=== PATIENT | female | born 1985 | race Hispanic/Latino ===

== ENCOUNTER 2023-08-20 09:56 | Emergency (ER) | payer BC ==
[~2023-08-20] VITALS: Ht 154.9 cm; Wt 66.2 kg
[2023-08-20 10:18] LABS: BASOPHILS # (AUTO) 0.02 K/uL (0.00-0.20); BASOPHILS % (AUTO) 0.3 % (0.0-5.0); EOSINOPHILS # (AUTO) 0.02 K/uL (0.00-0.70); EOSINOPHILS % (AUTO) 0.3 % (0.0-8.0); HEMATOCRIT 41.8 % (36-48); IMMATURE GRANULOCYTE ABSOLUTE 0.01 K/uL (0-1); LYMPHOCYTES % (AUTO) 28.3 % (21.0-51.0); MEAN CORPUSCULAR HEMOGLOBIN 28.8 pg (27.0-33.0); MEAN CORPUSCULAR HGB CONC 34.9 g/dL (32.0-36.0); MEAN CORPUSCULAR VOLUME 82.4 fL (79-99); MONOCYTES # (AUTO) 0.5 K/uL (0.1-1.0); MONOCYTES % (AUTO) 7.5 % (3.0-13.0); NEUTROPHILS # (AUTO) 4.5 K/uL (1.8-7.7); NEUTROPHILS % (AUTO) 63.5 % (40.0-77.0); PLATELET COUNT (AUTO) 194 K/uL (130-400); RED BLOOD CELL COUNT(AUTO) 5.07 MIL/uL (4.00-5.50)
[2023-08-20 10:20] LABS: APPEARANCE,URINE CLOUDY (CLEAR); BILIRUBIN,URINE NEGATIVE (NEGATIVE); COLOR,URINE YELLOW (YELLOW); GLUCOSE, URINE (UA) NEGATIVE (NEGATIVE); KETONES,URINE 150 mg/dL (NEGATIVE); LEUKOCYTE ESTERASE ,URINE NEGATIVE Leu/uL (NEGATIVE); NITRATE,URINE NEGATIVE (NEGATIVE); PH,URINE 6.5 (5.0-8.0); PROTEIN,URINE 30 mg/dL (NEGATIVE); UROBILINOGEN,URINE 0.2 mg/dL (0.2-1.0)
[2023-08-20 10:30] LABS: ADD UA MICROSCOPIC YES
[2023-08-20 10:46] LABS: BILIRUBIN,TOTAL 0.7 mg/dL (0.2-1.0); POTASSIUM 3.5 mmol/L (3.5-5.1)
[2023-08-20 10:52] LABS: BACTERIA,URINE RARE /HPF (None Seen); MUCUS,URINE RARE LPF (None Seen); SQUAMOUS EPITHELIAL CELL,UR MANY /HPF (0-2)
[2023-08-20] MEDS ORDERED: IOHEXOL-350 75 ML VIAL IV ONE (10:53)
[2023-08-20] MEDS ORDERED: LACTATED RINGERS 1000ML 1,000 ML IV ONE (11:00)
[2023-08-20] MEDS ORDERED: ONDANSETRON 4MG INJ IVP ONE (11:00)
[2023-08-20] MEDS ORDERED: DIPH1TAB PO (14:09)
[2023-08-20] MEDS ORDERED: ONDA4TAB10 PO (14:09)
[2023-08-20 14:18] VITALS: BP 135/81; PULSE 90; RESP 16; O2SAT 98
== END 2023-08-20 14:40 | disposition home or self-care (01) ==
LOC: EDH 09:56
DX: R19.7 Diarrhea, unspecified (principal); R11.2 Nausea with vomiting, unspecified; Z88.0 Allergy status to penicillin
CPT/HCPCS: 99284; 74177; 96374; 96361; 80053; 83690; 85025; 81001; 81025; 36415; J7120; J2405; Q9967